=== PATIENT | female | born 1960 | race Caucasian/White ===

== ENCOUNTER → 2016-12-18 | Outpatient (CLI) | payer OTHER ==
[~2016-12-18] MED LIST: ATOR1TAB21 PO; FLUO40CA PO; LISI-542 PO; METF1000 PO; TRAD5TAB PO; TRES1INJ2 SC; TRUL10IN SC
--- NOTE | 2016-12-18 12:50 | REP ---
RIGHT UPPER QUADRANT ULTRASOUND: Real-time sonographic evaluation of the right upper quadrant performed. The gallbladder demonstrates no evidence of intraluminal sludge or calculi, wall thickening or pericholecystic fluid. There is no intrahepatic or extrahepatic biliary dilatation, common bile duct measuring 6 mm in diameter. The liver demonstrates diffuse increased echotexture suggesting fibrofatty infiltration. The pancreas could not be seen due to overlying bowel gas. Right kidney demonstrates no hydronephrosis or nephrolithiasis with normal size at 10.1 cm in length. IMPRESSION: Diffuse fibrofatty infiltration of the liver without other significant abnormality. Signed by Sathish Romero MD 12/18/2016 05:19 P
== END ==
LOC: M RAD 08:19
PROVIDERS: ATTEND Surgery
DX: K76.0 Fatty (change of) liver, not elsewhere classified (principal)

== ENCOUNTER → 2016-12-30 | Outpatient (CLI) | payer OTHER ==
[~2016-12-30] VITALS: Ht 167.6 cm; Wt 90.7 kg
[~2016-12-30] MED LIST changes: +LIDOCAINE 2% INJ 100 MG/5 ML SDV (FOR ANES.) As Ordered ONE; +NS 1,000 ML IV ONE; +PROPOFOL 200 MG/20 ML VIAL As Ordered ONE
--- NOTE | 2016-12-30 07:53 | ROOR ---
Patient Name: Marizol Arango Procedure Date: 12/30/2016 7:25 AM Date of : 1960 Age: 56 Room: [facility] Gender: Female Note Status: Finalized Procedure: Upper GI endoscopy Indications: Epigastric abdominal pain Providers: DO Ekaterina Hartley MD: HOLLIE SALINAS Requesting Provider: Medicines: Propofol per Anesthesia Complications: No immediate complications. Procedure: Pre-Anesthesia Assessment: - Prior to the procedure, a History and Physical was performed, and patient medications and allergies were reviewed. The patient is competent. The risks and benefits of the procedure and the sedation options and risks were discussed with the patient. All questions were answered and informed consent was obtained. Patient identification and proposed procedure were verified by the physician, the nurse, the anesthesiologist and the line maintenance technician in the endoscopy suite. Mental Status Examination: alert and oriented. Airway Examination: normal oropharyngeal airway and neck mobility. Respiratory Examination: clear to auscultation. CV Examination: normal. Prophylactic Antibiotics: The patient does not require prophylactic antibiotics. Prior Anticoagulants: The patient has taken no previous anticoagulant or antiplatelet agents. ASA Grade Assessment: II - A patient with mild systemic disease. After reviewing the risks and benefits, the patient was deemed in satisfactory condition to undergo the procedure. The anesthesia plan was to use monitored anesthesia care (MAC). Immediately prior to administration of medications, the patient was re-assessed for adequacy to receive sedatives. The heart rate, respiratory rate, oxygen saturations, blood pressure, adequacy of pulmonary ventilation, and response to care were monitored throughout the procedure. The physical status of the patient was re-assessed after the procedure. The Endoscope was introduced through the mouth, and advanced to the second part of duodenum. The upper GI endoscopy was accomplished without difficulty. The patient tolerated the procedure well. Findings: Diffuse mild inflammation characterized by erythema and friability was found in the prepyloric region of the stomach. Biopsies were taken with a cold forceps for Helicobacter pylori testing. Estimated blood loss was minimal. The exam was otherwise without abnormality. Impression: - Gastritis. Biopsied. - The examination was otherwise normal. Recommendation: - Patient has a contact number available for emergencies. The signs and symptoms of potential delayed complications were discussed with the patient. Return to normal activities tomorrow. Written discharge instructions were provided to the patient. - Await pathology results. - Telephone my office for pathology results in 1 week. Sathish Mcguire DO 12/30/2016 7:52:37 AM This report has been signed electronically. Number of Addenda: 0 Note Initiated On: 12/30/2016 7:25 AM Estimated Blood Loss: Estimated blood loss was minimal.
--- NOTE | 2016-12-30 07:56 | ROOR ---
Patient Name: Marizol Arango Procedure Date: 12/30/2016 7:26 AM Date of : 1960 Age: 56 Room: [facility] Gender: Female Note Status: Finalized Procedure: Colonoscopy Indications: Screening for colorectal malignant neoplasm Providers: DO Ekaterina Hartley MD: HOLLIE SALINAS Requesting Provider: Medicines: Propofol per Anesthesia Complications: No immediate complications. Procedure: Pre-Anesthesia Assessment: - Prior to the procedure, a History and Physical was performed, and patient medications and allergies were reviewed. The patient is competent. The risks and benefits of the procedure and the sedation options and risks were discussed with the patient. All questions were answered and informed consent was obtained. Patient identification and proposed procedure were verified by the physician, the nurse, the anesthesiologist and the target aircraft technician in the endoscopy suite. Mental Status Examination: alert and oriented. Airway Examination: normal oropharyngeal airway and neck mobility. Respiratory Examination: clear to auscultation. CV Examination: normal. Prophylactic Antibiotics: The patient does not require prophylactic antibiotics. Prior Anticoagulants: The patient has taken no previous anticoagulant or antiplatelet agents. ASA Grade Assessment: II - A patient with mild systemic disease. After reviewing the risks and benefits, the patient was deemed in satisfactory condition to undergo the procedure. The anesthesia plan was to use monitored anesthesia care (MAC). Immediately prior to administration of medications, the patient was re-assessed for adequacy to receive sedatives. The heart rate, respiratory rate, oxygen saturations, blood pressure, adequacy of pulmonary ventilation, and response to care were monitored throughout the procedure. The physical status of the patient was re-assessed after the procedure. The Colonoscope was introduced through the anus and advanced to the cecum, identified by the appendiceal orifice, ileocecal valve and palpation. The colonoscopy was performed without difficulty. The patient tolerated the procedure well. Findings: Many small and large-mouthed diverticula were found in the entire colon. Estimated blood loss: none. The perianal exam findings include non-thrombosed internal hemorrhoids and internal hemorrhoids that prolapse with straining, but spontaneously regress to the resting position (Grade II). Impression: - Diverticulosis in the entire examined colon. - Non-thrombosed internal hemorrhoids and internal hemorrhoids that prolapse with straining, but spontaneously regress to the resting position (Grade II) found on perianal exam. - No specimens collected. Recommendation: - Patient has a contact number available for emergencies. The signs and symptoms of potential delayed complications were discussed with the patient. Return to normal activities tomorrow. Written discharge instructions were provided to the patient. - Repeat colonoscopy in 5-10 years for screening purposes. - Return to my office PRN. Sathish Mcguire DO 12/30/2016 7:55:39 AM This report has been signed electronically. Number of Addenda: 0 Note Initiated On: 12/30/2016 7:26 AM Estimated Blood Loss: Estimated blood loss: none.
[2016-12-30 08:18] VITALS: BP 118/79
== END ==
LOC: M OPP 06:35
PROVIDERS: ATTEND Surgery
DX: Z12.11 Encounter for screening for malignant neoplasm of colon (principal); K64.1 Second degree hemorrhoids; K57.30 Diverticulosis of large intestine without perforation or abscess without bleeding; K29.70 Gastritis, unspecified, without bleeding; R10.13 Epigastric pain; R19.4 Change in bowel habit; R14.2 Eructation; R14.3 Flatulence; R11.0 Nausea; R10.11 Right upper quadrant pain; E11.9 Type 2 diabetes mellitus without complications; E78.00 Pure hypercholesterolemia, unspecified; F41.9 Anxiety disorder, unspecified; F32.9 Major depressive disorder, single episode, unspecified; Z87.891 Personal history of nicotine dependence; Z79.84 Long term (current) use of oral hypoglycemic drugs; Z79.4 Long term (current) use of insulin; Z79.899 Other long term (current) drug therapy; Z88.5 Allergy status to narcotic agent
CPT/HCPCS: 43239; 88305; 88313; G0121

== ENCOUNTER → 2017-03-27 | Outpatient (CLI) | payer OTHER ==
[~2017-03-27] MED LIST changes: -LIDOCAINE 2% INJ 100 MG/5 ML SDV (FOR ANES.) As Ordered ONE; -METF1000 PO; +METF10004 PO; -NS 1,000 ML IV ONE; -PROPOFOL 200 MG/20 ML VIAL As Ordered ONE
--- NOTE | 2017-03-27 09:42 | REP ---
Right knee five views: There are no comparisons. There are small accessory ossicles posteromedial to the medial femoral condyle. There is a small accessory ossicle anterolateral to the tibial plateau . Mineralization and joint spaces are unremarkable. There is no effusion. No fracture or dislocation. Impression: Essentially negative right knee. Signed by Sathish Blanchard MD 03/27/2017 09:33 A
== END ==
LOC: M WUC 09:10
PROVIDERS: ATTEND Physician Assistant
DX: M25.561 Pain in right knee (principal)

== ENCOUNTER 2017-08-01 05:41 | Emergency (ER) | payer OTHER ==
[~2017-08-01] VITALS: Ht 167.6 cm; Wt 90.9 kg
[2017-08-01 05:42] VITALS: BP 121/76
[2017-08-01] MEDS ORDERED: AZITHROMYCIN 250 MG TAB PO ONE (06:15)
[2017-08-01] MEDS ORDERED: IPRATROPIUM 0.5MG/ALBUTEROL 2.5MG INH SOL UD 3ML (DUONEB)(J7620) NEB ONE (06:15)
[2017-08-01] MEDS ORDERED: predniSONE 20 MG TAB PO ONE (06:15)
[2017-08-01] MEDS ORDERED: AZIT500T2 PO (06:35)
[2017-08-01] MEDS ORDERED: GUAI100L2 PO (06:35)
[2017-08-01] MEDS ORDERED: VENTAER INFIL (06:35)
== END 2017-08-01 06:43 | disposition home or self-care (01) ==
LOC: M ED 05:41
DX: J44.0 Chronic obstructive pulmonary disease with (acute) lower respiratory infection (principal); J20.9 Acute bronchitis, unspecified; E66.9 Obesity, unspecified; E11.9 Type 2 diabetes mellitus without complications; J45.909 Unspecified asthma, uncomplicated; Z79.84 Long term (current) use of oral hypoglycemic drugs; Z79.899 Other long term (current) drug therapy; Z88.5 Allergy status to narcotic agent; Z87.891 Personal history of nicotine dependence; Z82.5 Family history of asthma and other chronic lower respiratory diseases; Z82.49 Family history of ischemic heart disease and other diseases of the circulatory system

== ENCOUNTER 2018-03-01 14:59 | Emergency (ER) | payer OTHER ==
[2018-03-01] MEDS: NS 1,000 ML IV (16:00)
[2018-03-01] MEDS: METOCLOPRAMIDE INJ 10MG/2ML VIAL (J2765) IV (16:30)
[2018-03-01 16:54] LABS: HEMATOCRIT 35.9 % (36.0-47.0); HEMOGLOBIN 11.8 g/dl (12.0-15.5); MEAN CORPUSCULAR HGB CONC 32.9 g/dl (32.0-36.5); MEAN CORPUSCULAR VOLUME 82.2 fl (80.0-96.0); PLATELET COUNT, AUTOMATED 227 10^3/uL (150-450); RED BLOOD COUNT 4.37 10^6/uL (4.00-5.40); RED CELL DISTRIBUTION WIDTH 13.4 % (11.5-14.5); WHITE BLOOD COUNT 6.8 10^3/uL (4.0-10.0)
[2018-03-01] MEDS: diphenhydrAMINE INJ 50MG/ML VIAL (J1200) IV (16:56)
[2018-03-01] MEDS: KETOROLAC 30 MG/ML VIAL (J1885) IV (16:57)
[2018-03-01 17:18] LABS: ANION GAP 11 MEQ/L (8-16); BLOOD UREA NITROGEN 19 MG/DL (7-18); CALCIUM LEVEL 9.1 MG/DL (8.5-10.1); CARBON DIOXIDE LEVEL 25 MEQ/L (21-32); CHLORIDE LEVEL 102 MEQ/L (98-107); CREATININE FOR GFR 1.06 MG/DL (0.55-1.30); GLOMERULAR FILTRATION RATE 57.3 (>51); GLUCOSE, FASTING 339 MG/DL (70-100); MAGNESIUM LEVEL 1.6 MG/DL (1.8-2.4); POTASSIUM SERUM 4.1 MEQ/L (3.5-5.1); SODIUM LEVEL 138 MEQ/L (136-145)
[2018-03-01] MEDS: MAG SULF 1GM/100ML (MAG RUN) 1 GM in APPROPRIATE DILUENT 1 EA IV (17:45)
== END 2018-03-01 18:49 | disposition home or self-care (01) ==
LOC: M ED 14:59
DX: G43.909 Migraine, unspecified, not intractable, without status migrainosus (principal); E83.42 Hypomagnesemia; E11.9 Type 2 diabetes mellitus without complications; I10 Essential (primary) hypertension; J44.9 Chronic obstructive pulmonary disease, unspecified; J45.909 Unspecified asthma, uncomplicated; K21.9 Gastro-esophageal reflux disease without esophagitis; F41.9 Anxiety disorder, unspecified; F32.9 Major depressive disorder, single episode, unspecified; Z87.442 Personal history of urinary calculi; Z87.891 Personal history of nicotine dependence; Z79.84 Long term (current) use of oral hypoglycemic drugs; Z79.899 Other long term (current) drug therapy; Z88.5 Allergy status to narcotic agent
CPT/HCPCS: J1200

== ENCOUNTER → 2018-04-01 | Outpatient (CLI) | payer OTHER | LOC: M RAD 14:13 | DX: R92.0 Mammographic microcalcification found on diagnostic imaging of breast (principal) | CPT/HCPCS: 77067 ==

== ENCOUNTER → 2018-04-20 | Outpatient (CLI) | payer OTHER | LOC: M RAD 15:08 | DX: R92.0 Mammographic microcalcification found on diagnostic imaging of breast (principal) | CPT/HCPCS: 77065 ==

== ENCOUNTER → 2018-04-25 | Outpatient (CLI) | payer OTHER ==
[2018-04-25 22:11] LABS: ANION GAP 8 MEQ/L (8-16); BLOOD UREA NITROGEN 23 MG/DL (7-18); CARBON DIOXIDE LEVEL 27 MEQ/L (21-32); CHLORIDE LEVEL 106 MEQ/L (98-107); CREATININE FOR GFR 0.83 MG/DL (0.55-1.30); GLOMERULAR FILTRATION RATE > 60.0 (>51); GLUCOSE, FASTING 138 MG/DL (70-100); POTASSIUM SERUM 4.9 MEQ/L (3.5-5.1); SODIUM LEVEL 141 MEQ/L (136-145); TRIGLYCERIDES LEVEL 201 MG/DL (<150)
[2018-04-25 23:10] LABS: CHOLESTEROL LEVEL 184 MG/DL (<200); CHOLESTEROL RISK RATIO 2.967 (<5); HDL CHOLESTEROL 62 MG/DL (>40); LDL CHOLESTEROL 81.8 MG/DL (<100); NON-HDL-C 122 MG/DL
[2018-04-26 00:46] LABS: ESTIMATED AVERAGE GLUCOSE 266 MG/DL (60-110); HEMOGLOBIN A1c 10.9 %
== END ==
LOC: M WUC 09:10
DX: E11.65 Type 2 diabetes mellitus with hyperglycemia (principal); E78.5 Hyperlipidemia, unspecified
CPT/HCPCS: 83036

== ENCOUNTER → 2018-05-09 | Outpatient (CLI) | payer OTHER ==
[~2018-05-09] MED LIST changes: -ATOR1TAB21 PO; -FLUO40CA PO; +LIDOCAINE 1% MDV 20ML VIAL As Ordered; -LISI-542 PO; -METF10004 PO; -TRAD5TAB PO; -TRES1INJ2 SC; -TRUL10IN SC
== END ==
LOC: M RADPRO 11:05
DX: R92.1 Mammographic calcification found on diagnostic imaging of breast (principal)
CPT/HCPCS: 19081

== ENCOUNTER → 2018-07-23 | Outpatient (CLI) | payer OTHER ==
[2018-07-23 12:23] LABS: ANION GAP 8 MEQ/L (8-16); BLOOD UREA NITROGEN 22 MG/DL (7-18); CALCIUM LEVEL 8.8 MG/DL (8.5-10.1); CARBON DIOXIDE LEVEL 28 MEQ/L (21-32); CHLORIDE LEVEL 105 MEQ/L (98-107); CHOLESTEROL LEVEL 170 MG/DL (<200); CHOLESTEROL RISK RATIO 2.786 (<5); CREATININE FOR GFR 0.91 MG/DL (0.55-1.30); GLOMERULAR FILTRATION RATE > 60.0 (>51); GLUCOSE, FASTING 157 MG/DL (70-100); HDL CHOLESTEROL 61 MG/DL (>40); LDL CHOLESTEROL 82 MG/DL (<100); NON-HDL-C 109 MG/DL; POTASSIUM SERUM 5.1 MEQ/L (3.5-5.1); SODIUM LEVEL 141 MEQ/L (136-145); TRIGLYCERIDES LEVEL 137 MG/DL (<150)
[2018-07-23 12:26] LABS: ESTIMATED AVERAGE GLUCOSE 229 MG/DL (60-110); HEMOGLOBIN A1c 9.6 %
[2018-07-23 12:36] LABS: MALB URINE SIEMENS 52.7 MG/L; MAU/CREAT RATIO 34.4 MCG/MG (0.0-30.0)
== END ==
LOC: M WUC 08:56
DX: E11.65 Type 2 diabetes mellitus with hyperglycemia (principal); E78.5 Hyperlipidemia, unspecified
CPT/HCPCS: 83036

== ENCOUNTER → 2018-08-12 | Outpatient (CLI) | payer OTHER ==
[~2018-08-12] MED LIST changes: +ATOR1TAB21 PO; +AZIT500T2 PO; +DOXY100C37 PO; +FLUO40CA PO; +GUAI100L2 PO; +HUMA100I5 SQ; -LIDOCAINE 1% MDV 20ML VIAL As Ordered; +LISI-542 PO; +METF10004 PO; +METF500T13 PO; +OMEP-218 PO; +PIOG1TAB36 PO; +TRAD5TAB PO; +TRES1INJ SUBQ; +TRES1INJ2 SC; +TRUL0.5I SUBQ; +TRUL10IN SC; +VENTAER INFIL
--- NOTE | 2018-08-12 14:55 | REP ---
MRI RIGHT FEMUR/THIGH WITH AND WITHOUT CONTRAST: Multiple sequences obtained prior to and following the intravenous administration of 20 mL ProHance. Correlation made with prior ultrasound 07/27/2018 performed at [facility]. At the site of the palpable lump is marked in the distal lateral right thigh just above the knee. In a subcutaneous location there appears to be a benign lipoma with diffuse fat signal and on suspicious internal enhancement. It measures approximately 2.2 x 2.1 x 1.4 cm. Adjacent musculature demonstrates normal signal and no nodule or abnormal enhancement. Visualized femur demonstrates normal marrow signal except for subchondral marrow edema in the inferior patella secondary to patellofemoral arthritis. There is a small knee joint effusion. IMPRESSION: At the site of the reported palpable lump is a subcutaneous benign lipoma with no other evidence of suspicious mass or nodule. There are degenerative changes at the patellofemoral joint. Electronically Signed by Sathish Romero MD 08/18/2018 11:08 P
== END ==
LOC: M PLARAD 09:04
PROVIDERS: ATTEND Physician Assistant
DX: R22.41 Localized swelling, mass and lump, right lower limb (principal)

== ENCOUNTER 2018-08-21 14:08 | Emergency (ER) | payer OTHER ==
[~2018-08-21] VITALS: Ht 167.6 cm; Wt 104.5 kg
[~2018-08-21 14:08] MED LIST changes: -DOXY100C37 PO; -HUMA100I5 SQ; -PIOG1TAB36 PO
[2018-08-21] MEDS ORDERED: PIOG1TAB36 PO (14:39)
[2018-08-21] MEDS ORDERED: HUMA100I5 SQ (14:39)
[2018-08-21] MEDS ORDERED: IPRATROPIUM 0.5MG/ALBUTEROL 2.5MG INH SOL UD 3ML (DUONEB)(J7620) NEB PRN (15:15)
[2018-08-21] MEDS ORDERED: methylPREDNISolone INJ 125 MG/2 ML VIAL (J2930) IV ONE (15:15)
[2018-08-21 15:28] LABS: BASO # 0.1 10^3/uL (0.0-0.2); BASO % 0.6 % (0.0-1.0); EOS # 0.3 10^3/uL (0.0-0.50); HEMATOCRIT 35.4 % (36.0-47.0); HEMOGLOBIN 11.4 g/dl (12.0-15.5); LYMPH % 22.9 % (24.0-44.0); MEAN CORPUSCULAR HEMOGLOBIN 26.9 pg (27.0-33.0); MEAN CORPUSCULAR HGB CONC 32.2 g/dl (32.0-36.5); MEAN CORPUSCULAR VOLUME 83.5 fl (80.0-96.0); MONO # 0.5 10^3/uL (0.0-0.8); MONO % 5.9 % (0.0-5.0); NEUTROPHILS # 5.9 10^3/uL (1.8-7.7); NEUTROPHILS % 67.3 % (36.0-66.0); PLATELET COUNT, AUTOMATED 269 10^3/uL (150-450); RED BLOOD COUNT 4.24 10^6/uL (4.00-5.40); WHITE BLOOD COUNT 8.7 10^3/uL (4.0-10.0)
[2018-08-21 15:41] LABS: BLOOD UREA NITROGEN 21 MG/DL (7-18); CALCIUM LEVEL 8.5 MG/DL (8.5-10.1); CARBON DIOXIDE LEVEL 25 MEQ/L (21-32); CHLORIDE LEVEL 99 MEQ/L (98-107); CK-MB VALUE MASS < 1.0 NG/ML (<3.6); CPK CREATINE PHOSPHOKINASE 89 U/L (26-192); CREATININE FOR GFR 1.15 MG/DL (0.55-1.30); GLOMERULAR FILTRATION RATE 52.2 (>51); GLUCOSE, FASTING 329 MG/DL (70-100); MB/CK RELATIVE INDEX 1.12 (< OR =4); NT-PRO BNP 83 PG/ML (<125); POTASSIUM SERUM 4.3 MEQ/L (3.5-5.1); SODIUM LEVEL 136 MEQ/L (136-145); TROPONIN I < 0.02 NG/ML (< 0.10)
--- NOTE | 2018-08-21 15:51 | REP ---
Chest one-view HISTORY: Cough Comparison: 05/10/2015 The costophrenic angles are not seen. The lungs are clear. The heart is normal in size. The pulmonary vasculature is normal in appearance. Impression: No acute disease. Electronically Signed by William Minor MD 08/21/2018 03:43 P
[2018-08-21 17:44] LABS: INFLUENZA A AMPLIFICATION NEGATIVE (NEGATIVE); INFLUENZA B AMPLIFICATION NEGATIVE (NEGATIVE)
[2018-08-21] MEDS ORDERED: DOXY100C37 PO (18:12)
[2018-08-21 18:23] VITALS: BP 138/68
--- NOTE | 2018-08-22 13:42 | ECGEPIP ---
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
== END 2018-08-21 18:32 | disposition home or self-care (01) ==
LOC: M ED 14:08
DX: J44.1 Chronic obstructive pulmonary disease with (acute) exacerbation (principal); E11.9 Type 2 diabetes mellitus without complications; I10 Essential (primary) hypertension; J45.909 Unspecified asthma, uncomplicated; F33.9 Major depressive disorder, recurrent, unspecified; F41.9 Anxiety disorder, unspecified; K21.9 Gastro-esophageal reflux disease without esophagitis; Z79.899 Other long term (current) drug therapy; Z79.4 Long term (current) use of insulin; Z88.5 Allergy status to narcotic agent; F17.210 Nicotine dependence, cigarettes, uncomplicated
CPT/HCPCS: 36415; 71045; 80048; 82550; 82553; 83605; 83880; 85025; 87040; 87502; 93005; 93041; 94640; 94760; 96374; 99285; J2930

== ENCOUNTER → 2018-09-01 | Outpatient (REF) | payer OTHER ==
[~2018-09-01] MED LIST changes: +DOXY100C37 PO; +HUMA100I5 SQ; +PIOG1TAB36 PO
== END ==
LOC: M LAB REF 17:47
PROVIDERS: ATTEND Surgery
DX: D17.23 Benign lipomatous neoplasm of skin and subcutaneous tissue of right leg (principal); D48.5 Neoplasm of uncertain behavior of skin

== ENCOUNTER → 2018-09-21 | Outpatient (REF) | payer OTHER, MEDICAID ==
[2018-09-21 18:42] LABS: CORTISOL BASELINE 6.6 UG/DL (4.3-22.4); ESTRADIOL < 19.0 PG/ML; FOLLICLE STIMULATING HORMONE 60.7 mIU/mL; LUTEINIZING HORMONE 44.5 mIU/mL; PROGESTERONE 0.21 NG/ML
[2018-09-26 14:16] LABS: ESTRONE SERUM 79 pg/mL (.); SEX HORMONE BINDING GLOBULIN 63.3 nmol/L (17.3-125.0); TESTOSTERONE FREE (DIRECT) 0.9 pg/mL (0.0-4.2)
== END ==
LOC: M LAB REF 16:46
PROVIDERS: ATTEND Obstetrics & Gynecology
DX: N95.1 Menopausal and female climacteric states (principal)

== ENCOUNTER 2018-11-11 11:55 | Emergency (ER) | payer MEDICAID, OTHER ==
[~2018-11-11] VITALS: Ht 167.6 cm; Wt 102.3 kg
[2018-11-11] MEDS ORDERED: INSUHUMDS SC (12:01)
[2018-11-11] MEDS ORDERED: METF500T13 PO (12:02)
[2018-11-11] MEDS ORDERED: FLUO40CA PO (12:02)
[2018-11-11] MEDS ORDERED: KETOROLAC TROMETHAMINE 10 MG TAB PO ONE (13:45)
[2018-11-11] MEDS ORDERED: KETO10TAB PO (13:53)
[2018-11-11 14:02] VITALS: BP 103/58
--- NOTE | 2018-11-11 14:25 | REP ---
LEFT ANKLE, FOUR VIEWS: Four views left ankle performed. There is no acute fracture or dislocation. Ankle mortis is anatomic. There is a rounded calcific density just distal to the lateral malleolus which may represent an old avulsion fracture. There is calcaneal spurring inferiorly and posteriorly. IMPRESSION: No evidence of acute fracture or dislocation. Electronically Signed by Sathish Romero MD 11/11/2018 03:38 P
--- NOTE | 2018-11-11 14:29 | REP ---
RIGHT FOOT, FOUR VIEWS: Four views of the right foot are performed. There is a nondisplaced fracture at the base of the 5th proximal phalanx. No other acute fracture or dislocation is seen. There is a large posterior calcaneal spur. There is mild narrowing of the 1st metatarsophalangeal joint. There is diffuse narrowing of the interphalangeal joints. IMPRESSION: Nondisplaced fracture, base of 5th proximal phalanx. Electronically Signed by Sathish Romero MD 11/11/2018 03:38 P
== END 2018-11-11 14:07 | disposition home or self-care (01) ==
LOC: M ED 11:55
DX: S92.514A Nondisplaced fracture of proximal phalanx of right lesser toe(s), initial encounter for closed fracture (principal); S93.402A Sprain of unspecified ligament of left ankle, initial encounter; S90.02XA Contusion of left ankle, initial encounter; W10.9XXA Fall (on) (from) unspecified stairs and steps, initial encounter; Y92.099 Unspecified place in other non-institutional residence as the place of occurrence of the external cause; Y93.9 Activity, unspecified; Y99.9 Unspecified external cause status; E11.9 Type 2 diabetes mellitus without complications; I10 Essential (primary) hypertension; E78.5 Hyperlipidemia, unspecified; G43.909 Migraine, unspecified, not intractable, without status migrainosus; J44.9 Chronic obstructive pulmonary disease, unspecified; F41.9 Anxiety disorder, unspecified; F32.9 Major depressive disorder, single episode, unspecified; Z79.84 Long term (current) use of oral hypoglycemic drugs; Z79.899 Other long term (current) drug therapy; Z88.5 Allergy status to narcotic agent